=== PATIENT | female | born 1995 | race Native Hawaiian/Other Pacific Islander ===

== ENCOUNTER 2017-01-16 23:00 | Inpatient (IN) | payer MEDICAID ==
[2017-01-17] MEDS ORDERED: ONDANSETRON DISINTEGRATING 4 MG TAB PO PRN (01:04)
[2017-01-17] MEDS ORDERED: ACETAMINOPHEN 325 MG TAB PO PRN (01:04)
[2017-01-17] MEDS ORDERED: ONDANSETRON 4 MG/2 ML VIAL IVP PRN (01:04)
--- NOTE | 2017-01-17 01:43 | PDGENHP ---
History and Physical - Chief Complaint Palpitations - History of Present Illness 21 yo F w/ hx of SVT and 3 days post- s/p transferred from [facility] where she presented with palpitations. Patient noted to be in wide-complex tachycardia, thought to be SVT with rate related LBBB. She received adenosine 12 mg x1, which reportedly terminated the arrhythmia. Additionally she received furosemide 40 mg IV as well as metoprolol (15 mg IV total) and 50 mg PO. At the time of my evaluation patient is comfortable without complaints. Monitor shows sinus tachycardia. Per patient and family, arrhythmia first surfaced when patient was 11 years old. She had an ablation at [facility] at that time. Patient states arrhythmia resurfaces about every 2 years, with her last episode being 2 years ago. She takes metoprolol 25 mo PO BID and no other medications. Currently she denies orthopnea and ESTRADA although she is requiring 4L O2 via NC to maintain sats. History Information - Allergies/Home Medication List Allergies/Adverse Reactions: No Known Allergies Allergy (Unverified 01/17/17 01:04) I have personally reviewed and updated: family history, medical history - Past Medical History SVT - Surgical History Additional surgical history: - Family History Positive for: cancer - Social History Smoking Status: Never smoked Alcohol Use: None Drug Use: None Review of Systems Review of Systems: ROS: 10pt was reviewed & negative except for what was stated in HPI & below Physical Exam Physical Exam: Constitutional: no apparent distress, not in pain Eyes: PERRL, EOMI Ears, Nose, Mouth, Throat: moist mucous membranes, no oral mucosal ulcers Cardiovascular: regular rate and rhythym, no murmur, rub, or gallop, tachycardia Respiratory: no respiratory distress, inspiratory crackles (Bibasilar) Gastrointestinal: normoactive bowel sounds, soft, non-tender abdomen, other ( Lower abdominal scar well approximated and healing well) Skin: warm, normal color Musculoskeletal: full muscle strength, no muscle tenderness Neurologic: AAOx3, CN II-XII Intact Psychiatric: interacting appropriately, not anxious Lab Data & Imaging Review Imaging Review: Reviewed records from [place]: CXR notable for vascular congestion, no zechariah edema. Visualized and Interpreted EKG results: Yes EKG additional interpertation: Reviewed ECG from [place]: Wide complex tachycardia with LBBB underlying morphology Assessment & Plan Assessment: 21 yo F w/ hx of SVT and 3 days post- presents with arrhythmia. Plan: 1. Wide complex tachycardia - Most likely SVT with rate dependent LBBB noting hx and appearance of ECG. Discussed case with Dr. Mari, who requested ICU admission for close monitoring. There is some concern that current episode may have been precipitated by a post- cardiomyopathy. - Monitor on telemetry in ICU - Adenosine if SVT recurs - S/p metoprolol 15 mg IV and 50 mg PO at OSH - Continue home metoprolol 25 mg BID for, would be cautious with additional BB until TTE results are available - TTE to evaluate cardiac function - S/p Lasix 40 mg IV x1 at OSH; will repeat at 9 AM - May need EP study or ablation after stabilization 2. AHRF - Currently requiring 2-4 L/min O2. Most likely 2/2 cardiomyopathy vs. flash pulmonary edema from SVT. Continue to monitor with acute treatment as above. 3. Post- state - incision well approximated and healing well. Diet - Regular Code - Full Ppx - SCDs Dispo - Admit to ICU, observation status for now
[2017-01-17 02:10] LABS: ANION GAP 13 mEq/L (8-16); CALCIUM 8.7 mg/dL (8.5-10.4); CARBON DIOXIDE 19 mEq/l (22-31); CHLORIDE 112 mEq/L (97-110); CREATININE 0.7 mg/dL (0.6-1.0); GLOMERULAR FILTRATION RATE > 60; GLUCOSE 99 mg/dL (70-100); MAGNESIUM 1.9 mg/dL (1.6-2.3); POTASSIUM 4.1 mEq/L (3.5-5.2); SODIUM 144 mEq/L (134-144)
[2017-01-17 02:21] LABS: TROPONIN I 0.718 ng/mL (0.000-0.034)
[2017-01-17 06:07] LABS: % IMMATURE GRANULYOCYTES 0.5 % (0.0-1.1); ABSOLUTE IMMATURE GRANULOCYTES 0.05 10^3/uL (0.00-0.10); ADD DIFF? NO; ADD MORPH? NO; ADD SCAN? YES; ATYPICAL LYMPHOCYTE FLAG 0 (0-99); FRAGMENT RBC FLAG 0 (0-99); HEMOGLOBIN 12.9 g/dL (12.6-16.3); LEFT SHIFT FLG 0 (0-99); LIPEMIA HEMOLYSIS FLAG 90 (0-99); MEAN CELL HEMOGLOBIN 31.3 pg (27.9-34.1); MEAN CELL HEMOGLOBIN CONCENTR. 34.9 g/dL (32.4-36.7); MEAN CELL VOLUME 89.8 fL (81.5-99.8); MEAN PLATELET VOLUME 11.4 fL (8.7-11.7); PLATELET COUNT 229 10^3/uL (150-400); RED BLOOD CELL COUNT 4.12 10^6/uL (4.18-5.33); RED CELL DISTRIBUTION WIDTH 14.1 % (11.5-15.2)
[2017-01-17 06:08] LABS: PLATELET CLUMPS FLAG 110 (0-99)
[2017-01-17 06:27] LABS: SCAN NEGATIVE
[2017-01-17 06:36] LABS: ANION GAP 13 mEq/L (8-16); CALCIUM 8.5 mg/dL (8.5-10.4); CARBON DIOXIDE 19 mEq/l (22-31); CHLORIDE 111 mEq/L (97-110); CREATININE 0.6 mg/dL (0.6-1.0); GLOMERULAR FILTRATION RATE > 60; GLUCOSE 83 mg/dL (70-100); MAGNESIUM 1.9 mg/dL (1.6-2.3); POTASSIUM 4.1 mEq/L (3.5-5.2); SODIUM 143 mEq/L (134-144)
[2017-01-17 06:46] LABS: TROPONIN I 0.585 ng/mL (0.000-0.034)
[2017-01-17] MEDS ORDERED: METOPROLOL TARTRATE 25 MG TAB PO SCH ×2 (09:00→09:31)
[2017-01-17] MEDS ORDERED: FUROSEMIDE 40 MG/4 ML VIAL IVP ONE (09:00)
--- NOTE | 2017-01-17 09:55 | ASMTCMCOM ---
CM Note CM Note Notes: 21 year old female admitted for Tachycardia-SVT, PP cardiomyopathy s/p . Came from [facility]4 L O2. No discharge needs anticipated at this time. Date Signed: 01/17/2017 09:54 AM Electronically Signed By:Breanna Hoffmann LCSW
--- NOTE | 2017-01-17 09:59 | ECHO ---
[email or web address] [address] [address] Main: [phone] Fax: Transthoracic Echocardiogram Name: PRAVIN VICK MR#: [id number] Study Date: 01/17/2017 Study Time: 08:18 AM Date of : 1995 Age: 21 year(s) Height: 160 cm (63 in.) Weight: 90.72 kg (200 lb.) BSA: 1.93 m2 Gender: Female Examination: Echo Indication: Supraventricular Tachycardia, ?CHF, flash pulmonary edema, post Image Quality: Adequate Contrast: Requested by: Hong Yoder BP: 138 mmHg/93 mmHg Heart Rate: Rhythm: Sinus tachycardia Indication: Supraventricular Tachycardia, ?CHF, flash pulmonary edema, post Procedure Staff Physical Security Manager: Miroslava Rios Reading Physician: Osvaldo Mari Requesting Provider: Conclusions: Left ventricle upper limits of normal. Mildly reduced systolic LV function. The ejection fraction is estimated to be 45-50 %. Moderate mitral valve regurgitation is present. Trivial to mild aortic valve regurgitation. Mild tricuspid regurgitation is present. Trivial anterior pericardial effusion. Measurements: Chambers Valvular Assessment AV/MV Valvular Assessment TV/PV Normal Normal Normal Name Value Range Name Value Range Name Value Range Ao Sushila (MM): 2.5 cm (2.2 cm-3.7 AV Vmax: 1.43 m/s (1 m/s-1.7 TR Vmax: 3.26 mm/s ( - ) cm) m/s) TR PGmax: 43 mmHg ( - ) IVSd (2D): 0.9 cm (0.6 cm-1.1 AV maxP mmHg ( - ) syst. PAP: 48 mmHg ( - ) cm) LVOT Vmax: 0.95 m/s (0.7 m/s-1.1 PV Vmax: 1.11 m/s (0.6 m/s-0.9 LVDd (2D): 5.5 cm (3.9 cm-5.3 m/s) m/s) cm) MILES (Vmax): 1.9 cm2 ( - ) PV PGmax: 5 mmHg ( - ) LVDs (2D): 4.5 cm (2.1 cm-4 MV meanP mmHg ( - ) cm) MVA (Vmax): 6.2 m/s ( - ) LVPWd (2D): 0.9 cm ( - ) LVOTd 1.9 cm 1.9 cm mm LVEF (BP): 45 % (>=55 %) EF Range: 45-50 % RVDd(2D): 3.1 cm (1.9 cm-3.8 cmmm) Continued Measurements: Chambers Valvular Assessment AV/MV Valvular Assessment TV/PV Patient: PRAVIN VICK Study Date: 01/17/2017 Page 1 of 2 08:18 AM Name Value Name Value Name Value LADs Lon.4 cm MV Annulus: 3.1 cm CVP (est.): 5 mmHg LA Area: 13.1 cm2 MV VTI: 7.70 cm LA Volume: 42 ml MR ERO: 0.140 cm2 LA Volume Index: 21.8 ml/m2 MR PISA radius: 6 mm MR Reg. Volume: 21 ml MR Reg. Fraction: 36 % Additional Vessels Name Value Ao Ascendin.4 cm Findings: Left Ventricle: Left ventricle upper limits of normal. No LV hypertrophy. Mildly reduced systolic LV function. The ejection fraction is estimated to be 45-50 %. Unable to assess diastolic dysfunction. Right Ventricle: Normal size right ventricle. Normal RV function. Left Atrium: The left atrium is normal in size. Right Atrium: The right atrium is normal in size. Mitral Valve: The mitral valve is normal in appearance. Moderate mitral valve regurgitation is present. The cause of the mitral valve regurgitation is annular dilatation. Aortic Valve: Aortic valve is not well visualized. Trivial to mild aortic valve regurgitation. No aortic valve stenosis is present. Tricuspid Valve: The tricuspid valve appears normal. Mild tricuspid regurgitation is present. The pulmonary artery pressure is moderately increased. Pulmonic Valve: Pulmonary valve not well visualized. There is no pulmonic regurgitation seen. Aorta: Normal size aortic root measuring 2.5 cm. Normal size ascending aorta measuring 2.4 cm. IVC: The IVC is normal sized. Pericardium: Trivial anterior pericardial effusion. (No Signature Object) Patient: PRAVIN VICK Study Date: 01/17/2017 Page 2 of 2 08:18 AM [id number]
[2017-01-17] MEDS: SPIRONOLACTONE 25 MG TAB PO SCH (10:28)
[2017-01-17] MEDS: METOPROLOL TARTRATE 50 MG TAB PO SCH ×2 (10:28→20:19)
[2017-01-17] MEDS: LISINOPRIL 2.5 MG TAB PO SCH (10:28)
--- NOTE | 2017-01-17 10:45 | GCON ---
[f rep st] CONSULTATION CARDIOLOGY CONSULTATION DATE OF CONSULTATION: 01/17/2017 INDICATIONS: SVT, congestive heart failure. HISTORY OF PRESENT ILLNESS: The patient is 21 years old. She has a history of SVT with previous att empts at posterior accessory pathway ablation dating back to 2006 at [facility]. Apparently , the procedure was "partially successful" due to the high risk for complications. Since then, she h as been maintained on low-dose metoprolol, taking 25 mg twice daily. She continues to have episodes of recurrent SVT, generally every several years. The most recent event was about 2 years ago. She has been with her first child recently. Apparently, she had hypertension during her pre gnancy and was transitioned from metoprolol over to labetalol. On Tuesday, her daughter was delivered via an uneventful section. She recovered in the hospital and was discharged home yesterday morning. She was seen in the emergency department last night after she developed the abrupt onset o f palpitations, racing heart rate, chest discomfort, diaphoresis, and dyspnea. In the emergency depa rtment, she was in a wide-complex tachycardia with a heart rate above 240 beats per minute. Her arrh ythmia terminated with adenosine. She was, however, found to be in pulmonary edema. She was treated with additional IV doses of metoprolol and placed on p.o. metoprolol. We were contacted from the [facility] Emergency Department for transfer to [facility]. Here, she has been in sinus tachycardia. She is on 4 L nasal cannula and breathing comfortably. She continues to have short salvos of SVT. Apparently, historically, she did not have preeclampsia. She had an echoc ardiogram this morning. Her left ventricular appears to be a little bit globular and slightly dilate d. Her ejection fraction is about 45%. PAST MEDICAL HISTORY: SVT. CURRENT MEDICATIONS: Metoprolol 25 mg twice daily. ALLERGIES: None. SOCIAL HISTORY: She is and accompanied by her . She uses no drugs or alcohol. FAMILY HISTORY: Noncontributory. REVIEW OF SYSTEMS: A full 10-point review of systems was performed and is otherwise negative. DATABASE: Her electrocardiogram in sinus rhythm demonstrates sinus tachycardia. In her SVT, she dev elops left bundle branch block morphology, wide-complex tachycardia. Her chest x-ray demonstrates pu lmonary edema. White blood cell count is 11, hematocrit 37.0, platelet count 229,000. Basic metabol ic panel is normal. Troponin 0.718 and subsequently 0.585. N-terminal proBNP elevated at 40 to 90. TSH 3.59. IMPRESSION: The patient is 21 years old. She has a history of supraventricular tachycardia, as note d above, with previous attempts at ablation. She has had recurrent palpitations and documented evide nce of recurrent supraventricular tachycardia. She presents now with a wide-complex tachyarrhythmia. Based on review of her ECG, I think this is likely supraventricular tachycardia with aberrancy. Sh teto is noted to be extremely tachycardic in her supraventricular tachycardia. With her supraventricula r tachycardia, she has developed evidence of pulmonary edema and a mild cardiomyopathy. 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 Fortunately, she has been stable today. She is re quiring 4 L of nasal cannula oxygen. She does have moderate mitral regurgitation on her echocardiogr am; however, I think this is probably functional in nature and can be followed. RECOMMENDATIONS: 1. I did up-titrate her metoprolol. She will take 50 mg twice daily. 2. I have started her on a low dose of lisinopril 2.5 mg daily and a low dose of Aldactone. 3. We will carefully follow her electrolytes and renal function. 4. I reviewed her medications. These can be taken in the setting of . I did ask her t o try to curtail her ; however, due to limited human data on these medications. She is okay and comfortable with not at the present time. If she does decide to breastfeed, I would recommend that she delay several hours after taking her medications. 5. I have asked Electrophysiology to see the patient regarding performance of a repeat ablation proc edure. 6. We will follow along with you. /[id number]/MODL
--- NOTE | 2017-01-17 16:01 | HOSPPROG ---
Hospitalist Progress Note Assessment/Plan: sinus tach at risk pe eval SVT management per cardiology Objective: Vital Signs Temp Pulse Resp BP Pulse Ox 37.1 C 100 20 137/96 H 93 01/17/17 13:17 01/17/17 13:51 01/17/17 13:17 01/17/17 13:51 01/17/17 13:51 Laboratory Results 01/17/17 05:52 01/17/17 05:52 01/16/17 01/17/17 01/18/17 05:59 05:59 05:59 Intake Total 200 Output Total 750 1900 Balance -550 -1900
[2017-01-17] MEDS ORDERED: IOPAMIDOL (ISOVUE 370) 100 ML BTL IV ONE (16:12)
--- NOTE | 2017-01-17 17:00 | PDMN ---
Medical Necessity Medical necessity: Change to IP, as of 01/17/17, per MD; los >2mn for ongoing eval/tx of wide complex tachycardia, SVT, CHF, AHRF s/p Csection; per MD
[2017-01-17] MEDS ORDERED: METOPROLOL TARTRATE 50 MG TAB PO SCH (21:00)
[2017-01-18 05:04] LABS: ANION GAP 12 mEq/L (8-16); CALCIUM 8.7 mg/dL (8.5-10.4); CARBON DIOXIDE 21 mEq/l (22-31); CHLORIDE 109 mEq/L (97-110); CREATININE 0.7 mg/dL (0.6-1.0); GLOMERULAR FILTRATION RATE > 60; GLUCOSE 78 mg/dL (70-100); POTASSIUM 4.1 mEq/L (3.5-5.2); SODIUM 142 mEq/L (134-144)
[2017-01-18 08:05] VITALS: BP 128/95; PULSE 88; RESP 14; TEMP 99.1; O2SAT 96
[2017-01-18] MEDS: METOPROLOL TARTRATE 50 MG TAB PO SCH (08:56)
[2017-01-18] MEDS: SPIRONOLACTONE 25 MG TAB PO SCH (08:56)
[2017-01-18] MEDS: LISINOPRIL 2.5 MG TAB PO SCH (08:56)
[2017-01-18] MEDS ORDERED: SPIRONOLACTONE 25 MG TAB PO SCH (09:00)
[2017-01-18] MEDS ORDERED: LISINOPRIL 2.5 MG TAB PO SCH (09:00)
--- NOTE | 2017-01-18 10:05 | HOSPPROG ---
Hospitalist Progress Note Assessment/Plan: sinus tach at risk pe eval SVT management per cardiology home today > 30 minutes Subjective: case discussed w dr rubio. feels better. no PE. less tachy Objective: Vital Signs Temp Pulse Resp BP Pulse Ox 37.3 C 88 14 128/95 H 96 01/18/17 07:59 01/18/17 07:59 01/18/17 07:59 01/18/17 07:59 01/18/17 07:59 Laboratory Results 01/17/17 05:52 01/18/17 04:28 01/17/17 01/18/17 01/19/17 05:59 05:59 05:59 Intake Total 200 930 Output Total 750 2800 Balance -550 -1870 - Physical Exam Constitutional: no apparent distress, appears nourished Eyes: PERRL, anicteric sclera Ears, Nose, Mouth, Throat: moist mucous membranes, hearing normal Cardiovascular: regular rate and rhythym, no murmur, rub, or gallop, No tachycardia Respiratory: no respiratory distress, no rales or rhonchi Gastrointestinal: normoactive bowel sounds, soft, non-tender abdomen Genitourinary: no bladder fullness, No doe in urethra Skin: warm, normal color Musculoskeletal: full muscle strength, no muscle tenderness Neurologic: AAOx3, sensation intact bilaterally Psychiatric: interacting appropriately
--- NOTE | 2017-01-18 11:27 | ECHO ---
[email or web address] [address] [address] Main: [phone] Fax: Transthoracic Echocardiogram Name: PRAVIN VICK MR#: [id number] Study Date: 01/18/2017 Study Time: 09:42 AM Date of : 1995 Age: 21 year(s) Height: 160 cm (63 in.) Weight: 104.78 kg (231 lb.) BSA: 2.06 m2 Gender: Female Examination: Limited Echo Indication: Reassess EF and MR Image Quality: Excellent Contrast: Requested by: Osvaldo Mari BP: 128 mmHg/95 mmHg Heart Rate: Rhythm: Indication: Reassess EF and MR Procedure Staff Mechanical Car Checker: Saadia Mayorga Physician: Osvaldo Mari Requesting Provider: Conclusions: Limited transthoracic echo to reassess LV function in this patient with newly diagnosed congestive heart failure thought possibly to reflect peripartum cardiomyopathy. The left ventricle measures at the upper limits of normal at end diastole. The ejection fraction is mildly reduced estimated at 45-50%. There is global left ventricular hypokinesis. Once again, moderate mitral insufficiency is noted. Essentially, this is unchanged when compared to a prior study. Measurements: Chambers Valvular Assessment AV/MV Valvular Assessment TV/PV Normal Normal Normal Name Value Range Name Value Range Name Value Range LVDd (2D): 5.6 cm (3.9 cm-5.3 cm) LVEF (BP): 50 % (>=55 %) EF Range: 45-50 % Continued Measurements: Findings: Left Ventricle: Left ventricle upper limits of normal. The ejection fraction is estimated to be 45-50 %. Mitral Valve: Moderate mitral valve regurgitation is present. Exam Comments: Limited 2-D echo.. (No Signature Object) Patient: PRAVIN VICK Study Date: 01/18/2017 Page 1 of 2 09:42 AM Patient: PRAVIN VICK Study Date: 01/18/2017 Page 2 of 2 09:42 AM [id number]
--- NOTE | 2017-01-18 11:32 | SOAPPROG ---
SOAP Progress Note Assessment/Plan: Assessment: She has a history of supraventricular tachycardia. 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 When she goes into this arrhythmias heart rates are as fast as 250 beats per. She is now 3 days . She recently had at least 30 minutes of this arrhythmia and presented with congestive heart failure. We have not seen any ventricular arrhythmias. Her echocardiogram demonstrates that her ejection fraction is on the low side at 45- 50% with borderline left ventricular dilatation and moderate mitral regurgitation. It is not clear to me presently whether not her current presentation represents, in addition to her SVT, some forme fruste of a peripartum cardiomyopathy. She did have -induced hypertension which may place her at increased risk for peripartum cardiomyopathy. Fortunately, she is doing well presently on her current medications with no indications of recurrent SVT, worsening heart failure or malignant ventricular arrhythmias. Plan: 1. At the present time I think that she can be discharged home. 2. I would like her to follow up with me in the clinic in the next 1-2 weeks. 3. As an outpatient we will carefully follow her ejection fraction and degree of mitral regurgitation. I may consider a VIOLETTE to further assess her mitral valve. 4. I would like her to continue her current medications. 01/18/17 11:29 Subjective: She has done well overnight. She has not had any recurrent arrhythmias. She remains in sinus tachycardia. She no longer has an oxygen requirement. She denies chest discomfort, chest pain and pressure. She has no lower extremity edema. We repeated a limited transthoracic echocardiogram today. This demonstrates that her ejection fraction is stable at 45 to 50% with borderline left ventricular dilatation associated with moderate mitral regurgitation. Objective: Vital Signs Temp Pulse Resp BP Pulse Ox 37.3 C 88 14 128/95 H 96 01/18/17 07:59 01/18/17 07:59 01/18/17 07:59 01/18/17 07:59 01/18/17 07:59 Laboratory Results 01/17/17 05:52 01/18/17 04:28 01/17/17 01/18/17 01/19/17 05:59 05:59 05:59 Intake Total 200 930 Output Total 750 2800 Balance -550 -8560 - Time Spent With Patient Time Spent With Patient: 45 minutes. Physical Exam - Physical Exam General Appearance: WD/WN, no apparent distress Neck: non-tender Respiratory: lungs clear Cardiac/Chest: regular rate, rhythm, systolic murmur (1/6 holosystolic murmur left sternal border) Peripheral Pulses: 2+: carotid (R), carotid (L) Abdomen: normal bowel sounds, non-tender Pelvic Exam: deferred Rectal: deferred Neuro/Psych: alert, oriented x 3 ICD10 Worksheet Patient Problems: Problems Problem Status Onset CHF (congestive heart failure) Acute Mitral regurgitation Acute SVT (supraventricular tachycardia) Acute - ICD10 Problem Qualifiers (1) SVT (supraventricular tachycardia) (2) CHF (congestive heart failure) (3) Mitral regurgitation
--- NOTE | 2017-01-18 12:45 | GDS ---
[f rep st] DISCHARGE SUMMARY DISCHARGE DIAGNOSES: 1. History of supraventricular tachycardia with recurrence. 2. Status post section, 3 days prior to admission. 3. Mild systolic heart failure. 4. Sinus tachycardia. Please see admission history and physical by Dr. Hong Oro. The patient presented with pa lpitations and wide-complex tachycardia, and responded. She was actually seen at [facility] a nd transferred here. She had an SVT. At that point in time, she received adenosine which terminated the arrhythmia. She was given Lasix and metoprolol, both oral and IV. Please see Dr. Oro's admission history and physical for further evaluation. She had a CT PE negative for pulmonary embol ism. She had a repeat echocardiogram once her arrhythmia was stabilized, which showed left ventricul ar ejection fraction is mildly reduced at 45% to 50% with global LVH, moderate mitral insufficiency. Her metoprolol was increased from 25 mg b.i.d. to 50 b.i.d. Lisinopril was added. Spironolactone w as added. These medication changes were made by Dr. Suman Mari, her pier hand. Additionally, he c hecked with the pharmacy to verify the safety in breast-feeding. The patient is discharged home with these new prescriptions and outpatient followup with Dr. Mari. /[id number]/MODL
--- NOTE | 2017-01-18 14:00 | ASDISCHSUM ---
Discharge Information Plan Status:Home with No Needs Medically Cleared to Leave:01/18/2017 Discharge Date:01/18/2017 12:49 PM CM D/C Disposition:Home, Routine, Self-Care ADT D/C Disposition:Home, Routine, Self-Care Projected Discharge Date:01/18/2017 12:49 PM Transportation at D/C:Family Discharge Delay Reason: Follow-Up Date:01/18/2017 12:49 PM Discharge Slot: Final Diagnosis:SVT, PP cardiomyopathy s/p Placement Information Patient Contact Information Contact Name:MC Relationship: Address: Home Phone: Work Phone: City: Alternate Phone: State/[employer] Code: Email: Financial Information Financial Class: Primary Plan Desc:[facility] Primary Plan Number:[id number] Secondary Plan Desc: Secondary Plan Number: Assessment Information [facility] CM Progress Note CM Note CM Note Notes: 21 year old female admitted for Tachycardia-SVT, PP cardiomyopathy s/p . Came from [facility]4 L O2. No discharge needs anticipated at this time. Date Signed: 01/17/2017 09:54 AM Electronically Signed By:Breanna Hoffmann LCSW Intervention Information
--- NOTE | 2017-01-18 16:53 | PDCARCONS ---
Cardiology Consult Reason for Consult: Wide complex tacycardia. Prior ablation procedure for concealed AP at [facility]. Consult done 01/07/2017, late dictation after review of records from [facility] Chief Complaint: Palpitations with heart rates up to 240 beats per min Requesting Physician: Dr. Osvaldo Mari History of Present Illness: 21-year-old female, known to me from her initial clinic visit with me 10 years ago. At that time she had presented with supraventricular tachycardia and had referred her to [facility] for an ablation procedure that was performed by Dr. Harry and Dr. Lo. Ablation procedure was unsuccessful at that time and she has been managed with metoprolol. She is day 2, she returned to the emergency department at [facility] yesterday with heart rates of 245 beats per minute. The wide complex tachycardia, left bundle branch block aberrancy was noted, adenosine was administered which converted her to sinus rhythm. She had a 2nd episode of supraventricular tachycardia with aberrancy while in the emergency department, received IV adenosine which converted again to sinus rhythm. She had pulmonary edema on presentation and required BiPAP. I visited with her in the ICU, her parents and her are present at the time of this conversation. Her RN was also present in the room. She states that she has frequent episodes of palpitations since her ablation, at least once a month however episodes that required emergency department visit occur every 1-2 years. She has not had syncope. She denies exertional chest pain. History Information - Allergies/Home Medication List Allergies/Adverse Reactions: No Known Allergies Allergy (Unverified 01/17/17 01:04) Home Medications: Acetaminophen [Tylenol 325mg (*)] 325 mg PO DAILY PRN 01/17/17 [Last Taken Unknown] I have personally reviewed and updated: family history, medical history, social history, surgical history Past Medical History: - Social History Smoking Status: Never smoked Alcohol Use: None Drug Use: None Physical Exam Physical Exam: Temp Pulse Resp BP Pulse Ox 37.3 C 88 14 128/95 H 96 01/18/17 07:59 01/18/17 07:59 01/18/17 07:59 01/18/17 07:59 01/18/17 07:59 O2 (L/minute) 2 Constitutional: no apparent distress, appears nourished, not in pain Eyes: PERRL, EOMI Ears, Nose, Mouth, Throat: moist mucous membranes, hearing normal Cardiovascular: regular rate and rhythym, no murmur, rub, or gallop Respiratory: no respiratory distress Gastrointestinal: normoactive bowel sounds Genitourinary: no bladder fullness Skin: warm Neurologic: AAOx3 Psychiatric: interacting appropriately, not anxious, not encephalopathic, thought process linear Lab and Imaging 01/17/17 05:52 01/18/17 04:28 WBC 11.03 10^3/uL (3.80-9.50) H 01/17/17 05:52 RBC 4.12 10^6/uL (4.18-5.33) L 01/17/17 05:52 Hgb 12.9 g/dL (12.6-16.3) 01/17/17 05:52 Hct 37.0 % (38.0-47.0) L 01/17/17 05:52 MCV 89.8 fL (81.5-99.8) 01/17/17 05:52 MCH 31.3 pg (27.9-34.1) 01/17/17 05:52 MCHC 34.9 g/dL (32.4-36.7) 01/17/17 05:52 RDW 14.1 % (11.5-15.2) 01/17/17 05:52 Plt Count 229 10^3/uL (150-400) 01/17/17 05:52 MPV 11.4 fL (8.7-11.7) 01/17/17 05:52 Neut % (Auto) 78.5 % (39.3-74.2) H 01/17/17 05:52 Lymph % (Auto) 16.6 % (15.0-45.0) 01/17/17 05:52 [place] % (Auto) 3.6 % (4.5-13.0) L 01/17/17 05:52 Eos % (Auto) 0.5 % (0.6-7.6) L 01/17/17 05:52 Baso % (Auto) 0.3 % (0.3-1.7) 01/17/17 05:52 Nucleat RBC Rel Count 0.0 % (0.0-0.2) 01/17/17 05:52 Absolute Neuts (auto) 8.67 10^3/uL (1.70-6.50) H 01/17/17 05:52 Absolute Lymphs (auto) 1.83 10^3/uL (1.00-3.00) 01/17/17 05:52 Absolute Monos (auto) 0.40 10^3/uL (0.30-0.80) 01/17/17 05:52 Absolute Eos (auto) 0.05 10^3/uL (0.03-0.40) 01/17/17 05:52 Absolute Basos (auto) 0.03 10^3/uL (0.02-0.10) 01/17/17 05:52 Absolute Nucleated RBC 0.00 10^3/uL (0-0.01) 01/17/17 05:52 Immature Gran % 0.5 % (0.0-1.1) 01/17/17 05:52 Immature Gran # 0.05 10^3/uL (0.00-0.10) 01/17/17 05:52 Sodium 142 mEq/L (134-144) 01/18/17 04:28 Potassium 4.1 mEq/L (3.5-5.2) 01/18/17 04:28 Chloride 109 mEq/L (97-110) 01/18/17 04:28 Carbon Dioxide 21 mEq/l (22-31) L 01/18/17 04:28 Anion Gap 12 mEq/L (8-16) 01/18/17 04:28 BUN 16 mg/dL (7-23) 01/18/17 04:28 Creatinine 0.7 mg/dL (0.6-1.0) 01/18/17 04:28 Estimated GFR > 60 01/18/17 04:28 Glucose 78 mg/dL (70-100) 01/18/17 04:28 Calcium 8.7 mg/dL (8.5-10.4) 01/18/17 04:28 Magnesium 1.9 mg/dL (1.6-2.3) 01/17/17 05:52 Troponin I 0.585 ng/mL (0.000-0.034) H 01/17/17 05:52 NT-Pro-B Natriuret Pep 4290 pg/mL (0-125) H 01/17/17 02:00 TSH 3.590 uIU/mL (0.465-4.680) 01/17/17 05:52 A/P Assessment: 1. -induced hypertension 2. Supraventricular tachycardia with left bundle-branch block aberrancy 3. Concealed posterior/posteroseptal accessory pathway, attempted ablation procedure at [facility] in 2006. Plan: I have reviewed her ablation report from 11/22/2006, concealed posterior/ posteroseptal accessory pathway was present. Transseptal puncture was done and ablation was performed with radiofrequency in the posterior inferior region of the mitral valve. Cryo ablation catheter was placed in the coronary sinus and middle cardiac vein and ablations were performed there as well. According to Dr. Harry's note, there was no blocking conduction over the accessory pathway. 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 She is now presenting with -induced hypertension and sustained supraventricular tachycardia requiring emergency department visit 2 days . Her echocardiogram shows LVEF of 45-50%, she did have pulmonary edema on presentation to the [facility]. Currently she is on appropriate medical therapy with beta-blockers and Quentin inhibitors. She has recurrent SVT with heart rates in excess of 240 beats per minute despite medical therapy. Repeat ablation procedure is appropriate. Risks of the procedure including , mi, CVA, cardiac tamponade, DVT, pulmonary embolism, complete heart block requiring permanent pacemaker placement , infection, vascular access complications etc were discussed with her and her family at length. Alternative to this including escalation of medical therapy was discussed. She wants to proceed with ablation procedure. Given high risk of DVT/pulmonary embolism in the peripartum period, I would like to wait for 6 weeks prior to scheduling her for an ablation, ablation is scheduled for February. Metoprolol will be stopped 3 days prior to the procedure. These findings were discussed with referring hand tire trimmer Dr. Osvaldo Mari.
== END 2017-01-18 12:49 | disposition home or self-care (01) | DRG 776 ==
LOC: F2N 01-17 01:01 → F2W 01-17 12:55 → OBSVTOIN 01-17 16:21
PROVIDERS: ADMIT Student in an Organized Health Care Education/Training Program; ATTEND Student in an Organized Health Care Education/Training Program
DX: O99.43 Diseases of the circulatory system complicating the puerperium (principal); I47.1 Supraventricular tachycardia; I50.20 Unspecified systolic (congestive) heart failure; O13.5 Gestational [pregnancy-induced] hypertension without significant proteinuria, complicating the puerperium
CPT/HCPCS: J1940; Q9967

== ENCOUNTER 2017-03-09 07:01 | Observation (INO) | payer MEDICAID ==
[2017-03-09] MEDS ORDERED: NS 1,000 ML IV ONE (07:04)
--- NOTE | 2017-03-09 07:19 | CPEKG ---
Heart Rate: 93 RR Interval: 645 P-R Interval: 144 QRSD Interval: 80 QT Interval: 388 QTC Interval: 483 P [place]: 47 QRS [place]: 14 T Wave [place]: 11 EKG Severity - BORDERLINE ECG - EKG Impression: SINUS RHYTHM EKG Impression: BORDERLINE T ABNORMALITIES, ANTERIOR LEADS EKG Impression: BORDERLINE PROLONGED QT INTERVAL Electronically Signed By: Yoselin Bishop 09-Mar-2017 09:41:53
[2017-03-09 07:30] LABS: % IMMATURE GRANULYOCYTES 0.4 % (0.0-1.1); ABSOLUTE IMMATURE GRANULOCYTES 0.03 10^3/uL (0.00-0.10); ADD DIFF? NO; ADD MORPH? NO; ADD SCAN? NO; ATYPICAL LYMPHOCYTE FLAG 10 (0-99); FRAGMENT RBC FLAG 0 (0-99); HEMATOCRIT 42.3 % (38.0-47.0); HEMOGLOBIN 14.4 g/dL (12.6-16.3); LEFT SHIFT FLG 0 (0-99); LIPEMIA HEMOLYSIS FLAG 90 (0-99); MEAN CELL HEMOGLOBIN 29.9 pg (27.9-34.1); MEAN CELL VOLUME 87.9 fL (81.5-99.8); MEAN PLATELET VOLUME 10.3 fL (8.7-11.7); PLATELET CLUMPS FLAG 20 (0-99); PLATELET COUNT 260 10^3/uL (150-400); RED BLOOD CELL COUNT 4.81 10^6/uL (4.18-5.33); RED CELL DISTRIBUTION WIDTH 12.7 % (11.5-15.2)
[2017-03-09 07:39] LABS: APTT 27.2 SEC (23.0-38.0); INR 0.97 (0.83-1.16); PROTIME(PATIENT) 13.1 SEC (12.0-15.0)
[2017-03-09 07:41] LABS: ANION GAP 15 mEq/L (8-16); CALCIUM 9.5 mg/dL (8.5-10.4); CARBON DIOXIDE 21 mEq/l (22-31); CHLORIDE 109 mEq/L (97-110); CREATININE 0.8 mg/dL (0.6-1.0); GLOMERULAR FILTRATION RATE > 60; GLUCOSE 92 mg/dL (70-100); MAGNESIUM 1.7 mg/dL (1.6-2.3); SODIUM 145 mEq/L (134-144)
--- NOTE | 2017-03-09 08:12 | PDGENHP ---
History & Physical Chief Complaint: svt History of Present Illness: symptomatic svt Relevant Physical Exam: [id number]. cta. aox3 Cardiorespiratory Assessment: symptomatic svt. for ablation
[2017-03-09] MEDS ORDERED: LIDOCAINE 1% 300 MG/30 ML SDV ONE (08:21)
[2017-03-09] MEDS ORDERED: MIDAZOLAM 2 MG/2 ML VIAL IVP ONE (08:21)
[2017-03-09] MEDS ORDERED: HEPARIN 10,000 UNIT/10 ML MDV ONE ×2 (08:22→08:23)
[2017-03-09] MEDS ORDERED: BUPIVACAINE 0.5% 30 ML SDV ONE (08:22)
[2017-03-09] MEDS ORDERED: HEPARIN/DEXTROSE 25,000 UNIT/500 ML BAG ONE (08:22)
--- NOTE | 2017-03-09 08:23 | PDANEPAE ---
ANE History of Present Illness SVT ablation ANE Past Medical History Past Medical History: PIH and mild CHF - Cardiovascular History Hx Hypertension: Yes Hx Arrhythmias: Yes Hx CHF / Valvular Disease: Yes - Pulmonary History Hx Sleep Apnea: No - Endocrine History Hx Diabetes: No - Chronic Pain History Chronic Pain: No ANE Review of Systems Review of Systems: - Exercise capacity Exercise capacity: >=4 METS ANE Patient History - Allergies Allergies/Adverse Reactions: No Known Allergies Allergy (Unverified 01/17/17 01:04) - Home Medications Home medications: home medication list seen and reviewed Home Medications: Acetaminophen [Tylenol 325mg (*)] 325 mg PO DAILY PRN 01/17/17 [Last Taken Unknown] - NPO status NPO Status: no food or drink >8 hours - Anes Hx Anes Hx: no prior problems - Smoking Hx Smoking Status: Never smoked - Alcohol Use Alcohol Use: None - Family Anes Hx Family Anes Hx: none ANE Labs/Vital Signs - Labs Result Diagrams: 03/09/17 07:15 03/09/17 07:15 - Vital Signs Height: 160.02 cm Weight: 90.718 kg ANE Physical Exam - Airway Mallampati Score: Class 2 Mouth exam: normal dental/mouth exam - Pulmonary Pulmonary: no respiratory distress - Cardiovascular Cardiovascular: regular rate and rhythym - ASA Status ASA Status: II ANE Anesthesia Plan Anesthesia Plan: general endotracheal anesthesia (R/B/A explained and patient agrees to proceed)
[2017-03-09] MEDS ORDERED: fentaNYL 100 MCG/2 ML INJ ONE (08:51)
[2017-03-09] MEDS ORDERED: PROPOFOL/EMULSION 500 MG/50 ML BOTTLE IV ONE ×5 (08:51→15:30)
[2017-03-09] MEDS ORDERED: DEXAMETHASONE 4 MG/ML VIAL ONE (09:02)
[2017-03-09] MEDS ORDERED: IOPAMIDOL (ISOVUE-300) 100 ML BTL ONE (09:03)
[2017-03-09] MEDS ORDERED: ROCURONIUM 50 MG/5 ML VIAL ONE (10:26)
[2017-03-09] MEDS ORDERED: PHENYLEPHRINE HCL 100 MCG/ML SYR ONE ×5 (10:28→13:49)
[2017-03-09] MEDS ORDERED: CALCIUM CHLORIDE 1 GM/10 ML INJ ONE (14:45)
[2017-03-09] MEDS ORDERED: ISOPROTERENOL HCL/D5W 0.2 MG/50 ML BAG IV ONE (14:51)
[2017-03-09] MEDS ORDERED: PROTAMINE SULFATE 50 MG/5 ML VIAL IVP ONE (15:53)
[2017-03-09] MEDS ORDERED: ATROPINE SULFATE 1 MG/10 ML SYR ONE (16:25)
[2017-03-09] MEDS ORDERED: ACETAMINOPHEN 325 MG TAB PO PRN (16:44)
[2017-03-09] MEDS ORDERED: OXYCODONE/APAP 5/325 TAB PO PRN (16:44)
[2017-03-09] MEDS ORDERED: ONDANSETRON 4 MG/2 ML VIAL IVP PRN (16:44)
--- NOTE | 2017-03-09 17:18 | CPEKG ---
Heart Rate: 86 RR Interval: 698 P-R Interval: 136 QRSD Interval: 76 QT Interval: 360 QTC Interval: 431 P [place]: 52 QRS [place]: 28 T Wave [place]: -32 EKG Severity - BORDERLINE ECG - EKG Impression: SINUS RHYTHM EKG Impression: BORDERLINE T ABNORMALITIES, DIFFUSE LEADS Electronically Signed By: Armin Marquez 10-Mar-2017 01:50:32
[2017-03-09 17:41] LABS: ANION GAP 15 mEq/L (8-16); CALCIUM 9.3 mg/dL (8.5-10.4); CARBON DIOXIDE 17 mEq/l (22-31); CHLORIDE 111 mEq/L (97-110); CREATININE 0.7 mg/dL (0.6-1.0); GLOMERULAR FILTRATION RATE > 60; GLUCOSE 144 mg/dL (70-100); MAGNESIUM 1.4 mg/dL (1.6-2.3); POTASSIUM 4.2 mEq/L (3.5-5.2); SODIUM 143 mEq/L (134-144)
--- NOTE | 2017-03-09 17:49 | EPPROC ---
Electrophysiology Procedure Note: ELECTROPHYSIOLOGIC STUDY AND CATHETER MEDIATED ABLATION OF 3 separate POSTEROSEPTAL ACCESSORY PATHWAYS Procedures performed: 47323-29 EP evaluation with RA/RV/LA pace/record, with arrhythmia induction 58843-32 EP evaluation with RA/RV pace record, insert/reposition catheter, with arrhythmia induction 93172 Intracardiac catheter ablation, SVT arrhythmogenic focus 97460 3D mapping Fluoroscopy 43950 Intracardiac echocardiogram 13705-91 Transseptal puncture INDICATION: Recurrent SVT Prior failed ablation at [place], [place] PROCEDURE: Catheters and anesthesia: The patient arrived in the Electrophysiology Laboratory in the fasting state. The right clavicular region, right groin, and left groin area were prepped and draped in the usual sterile manner. Anesthesiologist Dr. Candis Forrest administered general anesthesia. Appropriate non-invasive blood pressure, pulse oximetry and end-tidal CO2 monitoring was established. All catheters were placed percutaneously using the modified Seldinger technique , and advanced into position under fluoroscopic guidance. One #6 Polish hexapolar non-deflectable electrode catheter was inserted into the right atrial appendage via the left femoral vein (2mm spacing; except the proximal ring which was 25cm from the tip used for unipolar recordings). One #7 Polish deflectable octapolar electrode catheter was advanced to the His-bundle position via the left femoral vein (2mm spacing). One #7 Polish deflectable quadrapolar catheter was advanced to the anteroseptal right ventricle via the left femoral vein. One #7 Polish deflectable catheter with 10 pairs of electrodes was placed via the right femoral vein into the coronary sinus. A Halo catheter was placed along the tricuspid annulus initially to r/o right lateral AP and then removed. At beginning of procedure, using Agilis sheath and PWP catheter, CS angiography was done. There were no CS branch anomalies. Programmed stimulation of the right atrium, right ventricle and coronary sinus ( left atrium) was performed. Parahisian pacing demonstrated two patterns of retrograde atrial activation during His bundle capture and loss of His bundle capture c.w. retrograde accessory pathway conduction. 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 Ventricular extrastimuli delivered during tachycardia during His bundle refractoriness advanced the next atrial activation with the same retrograde atrial activation sequence proving the tachycardia to be orthodromic AV reentrant tachycardia. Heparin was given to keep ACT >250 ms during initial part of procedure. Mapping was difficult due to retrograde slow AV maribeth pathway also being present and conducting 1:1 up to 400 ms. Mapping was performed during ventricular pacing. Ablation was performed for 2 separate AV accessory pathways: AP #1 coronary sinus ostium near ostium of middle cardiac vein ablation with 6 mm cryo catheter. AP # 2 proximal coronary sinus floor just proximal to ostium of posterolateral branch of coronary sinus ablation with 6mm cryo catheter. Block with 1st cryo within 11 seconds. AP#3 was identified lateral to AP#2 site. In preparation for ablation of the left posteroseptal accessory pathway a transeptal puncture was performed under fluoroscopic and hemodynamic guidance. Intracardiac echocardiography was used during the procedure. Mean left atrial pressure was 6 mm Hg mmHg. A SL1 sheath was inserted into the left atrium. The patient was administered IV heparin bolus and IV heparin continuous infusion prior to the transseptal puncture and the activated clotting time was maintained ~ 300 seconds during the remainder of the procedure. RF was delivered for AP#3 at posteroseptal mitral annulus. AP conduction terminated within 7 seconds of initiation of ablation. Further RF applications were delivered anterior and posterior to this site. Programmed stimulation from the RA, CS, right and leftventricle during the baseline state post ablation and during infusion of isoproterenol 2 -8 mcg/min confirmed that there was no conduction over the accessory pathways and no orthodromic AVRT could be induced. The catheters were removed. Long sheath was exchanged for short sheath. Protamine was administered. The patient was transferred to the cardiovascular holding area in stable condition. Vascular access sheaths were removed in the holding area. There were no apparent complications. Results: A. Spontaneous Intervals: Pre ablation SCL 830 ms AH 50 ms HV 40 ms Post ablation SCL 760 ms AH 45 ms HV 40 ms B. Antegrade AV maribeth function (decremental pacing) Pre ablation FPERP 300 ms SPERP 270 ms WBB CL 260 ms Post ablation FPERP 300 ms SPERP 280 ms WBB CL 260 ms C. Retrograde AV maribeth function (decremental pacing) Pre ablation see AP conduction Post ablation FPERP 400 ms SPERP 390 ms WBB CL 380 ms D. Accessory pathway function 1. 3 separate posteroseptal accessory pathways. 2. The AV accessory pathways conducted in the retrograde directions. During ventricular pacing 1:1 conduction over the accessory pathway was maintained to a cycle length of 300 ms, block over the AP occurred at 290 ms. E. Arrhythmias: 1. Orthodromic AVRT Tachycardia cycle length: 260 ms AH interval 50 ms HV interval 40ms VA interval (His) 170 ms Shortest VA interval 130 ms CONCLUSIONS: 1. 3 separate AV accessory pathways at ostium of middle cardiac vein, proximal CS and posteroseptal mitral annulus. 2. 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 3. Successful ablation of the accessory pathways with elimination of AV reentrant tachycardia. (RF and cryo) 4. No apparent complications. Patient Problems: Problems Problem Status Onset SVT (supraventricular tachycardia) Acute CHF (congestive heart failure) Acute Mitral regurgitation Acute
--- NOTE | 2017-03-09 17:57 | ECHO ---
[email or web address] [address] [address] Main: [phone] Fax: Transthoracic Echocardiogram Name: PRAVIN VICK MR#: [id number] Study Date: 03/09/2017 Study Time: 07:32 AM Date of : 1995 Age: 22 year(s) Height: 160 cm (63 in.) Weight: 90.72 kg (200 lb.) BSA: 1.93 m2 Gender: Female Examination: Echo Indication: Supraventricular Tachycardia Image Quality: Contrast: Requested by: Armin Marquez BP: 121 mmHg/73 mmHg Heart Rate: Rhythm: Indication: Supraventricular Tachycardia Procedure Staff [place] Administrator: Saadia Guadarrama Reading Physician: Chema Conner Requesting Provider: Conclusions: Mildly dilated left ventricle. Normal global systolic LV function. The ejection fraction is estimated to be 50-55 %. No regional wall motion abnormality. Normal RV function. The left atrium is normal in size. The right atrium is normal in size. The pulmonary artery pressure is normal. No pericardial effusion. Measurements: Chambers Valvular Assessment AV/MV Valvular Assessment TV/PV Normal Normal Normal Name Value Range Name Value Range Name Value Range Ao Sushila (MM): 2.7 cm (2.2 cm-3.7 AV meanP mmHg ( - ) TR Vmax: 2.49 mm/s ( - ) cm) MV E Vmax: 1.02 m/s ( - ) TR PGmax: 25 mmHg ( - ) IVSd (2D): 0.8 cm (0.6 cm-1.1 MV A Vmax: 0.50 m/s ( - ) syst. PAP: 30 mmHg ( - ) cm) MV E/A: 2.04 ( - ) LVDd (2D): 5.4 cm (3.9 cm-5.3 cm) LVDs (2D): 4.7 cm (2.1 cm-4 cm) LVPWd (2D): 0.7 cm ( - ) LVOTd 1.9 cm 1.9 cm mm LVEF (MOD4): 56 % (>=55 %) EF Range: 50-55 % Continued Measurements: Chambers Valvular Assessment AV/MV Valvular Assessment TV/PV Patient: PRAVIN VICK Study Date: 03/09/2017 Page 1 of 2 07:32 AM Name Value Name Value Name Value LADs: 3.7 cm MV E' Septal: 0.07 m/s CVP (est.): 5 mmHg LADs Lon.3 cm MV E/E' Septal: 15.40 LA Area: 17.2 cm2 MV E/E' Lateral: 11.80 MR Vena Contracta: 0.2 cm Findings: Left Ventricle: Mildly dilated left ventricle. Normal global systolic LV function. The ejection fraction is estimated to be 50-55 %. No regional wall motion abnormality. Right Ventricle: Normal size right ventricle. Normal RV function. Left Atrium: The left atrium is normal in size. Right Atrium: The right atrium is normal in size. Mitral Valve: The mitral valve is normal in appearance and function. Mild mitral valve regurgitation is present. Aortic Valve: The aortic valve is normal in appearance and function. Tricuspid Valve: The tricuspid valve is normal in appearance and function. Trivial to mild tricuspid valve regurgitation. The pulmonary artery pressure is normal. Pulmonic Valve: The pulmonic valve is normal in appearance and function. Trivial pulmonic valve regurgitation. Aorta: The aorta is normal. Pericardium: No pericardial effusion. Exam Comments: Compared to the echo of 01/18/17, the MR has improved.. (No Signature Object) Patient: PRAVIN VICK Study Date: 03/09/2017 Page 2 of 2 07:32 AM [id number]
[2017-03-09] MEDS ORDERED: MAGNESIUM SULF 2 GM/WATER 50 ML IV ONE (19:00)
--- NOTE | 2017-03-10 05:56 | POSTANESTH ---
Post Anesthetic Evaluation Cardiovascular Status: Normal, Stable Respiratory Status: Normal, Stable Level of Consciousness/Mental Status: Can Participate in Eval Pain Control: Adequate, Prn Tx Ordered Nausea/Vomiting Control: Adequate, Prn Tx Ordered Complications Possibly Related to Anesthesia: None Noted (seen 03/09/17 in cvc)
[2017-03-10 06:09] LABS: % IMMATURE GRANULYOCYTES 0.2 % (0.0-1.1); ABSOLUTE IMMATURE GRANULOCYTES 0.02 10^3/uL (0.00-0.10); ADD DIFF? NO; ADD MORPH? NO; ADD SCAN? NO; ATYPICAL LYMPHOCYTE FLAG 0 (0-99); FRAGMENT RBC FLAG 0 (0-99); HEMATOCRIT 35.7 % (38.0-47.0); HEMOGLOBIN 11.9 g/dL (12.6-16.3); LEFT SHIFT FLG 0 (0-99); LIPEMIA HEMOLYSIS FLAG 80 (0-99); MEAN CELL HEMOGLOBIN 29.9 pg (27.9-34.1); MEAN CELL HEMOGLOBIN CONCENTR. 33.3 g/dL (32.4-36.7); MEAN CELL VOLUME 89.7 fL (81.5-99.8); MEAN PLATELET VOLUME 10.9 fL (8.7-11.7); PLATELET CLUMPS FLAG 0 (0-99); PLATELET COUNT 217 10^3/uL (150-400); RED BLOOD CELL COUNT 3.98 10^6/uL (4.18-5.33); RED CELL DISTRIBUTION WIDTH 12.9 % (11.5-15.2)
[2017-03-10 06:18] LABS: ANION GAP 12 mEq/L (8-16); CALCIUM 8.4 mg/dL (8.5-10.4); CARBON DIOXIDE 21 mEq/l (22-31); CHLORIDE 110 mEq/L (97-110); CREATININE 0.8 mg/dL (0.6-1.0); GLOMERULAR FILTRATION RATE > 60; GLUCOSE 89 mg/dL (70-100); POTASSIUM 3.8 mEq/L (3.5-5.2); SODIUM 143 mEq/L (134-144)
[2017-03-10 06:29] LABS: CK-MB INTERPRETATION NEGATIVE (NEGATIVE); TROPONIN I 0.835 ng/mL (0.000-0.034)
[2017-03-10 06:32] LABS: INR 1.11 (0.83-1.16); PROTIME(PATIENT) 14.5 SEC (12.0-15.0)
[2017-03-10 07:55] VITALS: RESP 14
--- NOTE | 2017-03-10 08:30 | CPEKG ---
Heart Rate: 90 RR Interval: 667 P-R Interval: 141 QRSD Interval: 76 QT Interval: 352 QTC Interval: 431 P [place]: 43 QRS [place]: 17 T Wave [place]: -46 EKG Severity - NORMAL ECG - EKG Impression: SINUS RHYTHM EKG Impression: DIFFUSE BORDERLINE T ABNL EKG Impression: COMPARED WITH 03/09/2017 AT 5:17 PM NO SIG CHANGE Electronically Signed By: Yoselin Bishop 10-Mar-2017 17:09:39
[2017-03-10] MEDS ORDERED: ASPIRIN 81 MG CHEWABLE TAB PO SCH (09:00)
--- NOTE | 2017-03-10 11:23 | ASMTCASEMG ---
Living Arrangements What is your living Answers: With Spouse arrangement? Who do you live with? Type Of Residence What kind of residence do Answers: House you live in? Discharge Plan Comments Coordination Status Comments Notes: Pt is a 22 y/o female admitted for s/p svt ablation. Pt will most likely d/c independent when medically stable. No therapies ordered at this time. CM spoke w/ JACQUIE Nails regarding d/c POC. CM available for changes. Plan: Independent Date Signed: 03/10/2017 11:23 AM Electronically Signed By:FELY Woodard
[2017-03-10 11:26] VITALS: BP 102/80; PULSE 88; TEMP 99; O2SAT 93
--- NOTE | 2017-03-10 13:00 | ECHO ---
[email or web address] [address] [address] Main: [phone] Fax: Transthoracic Echocardiogram Name: PRAVIN VICK MR#: [id number] Study Date: 03/10/2017 Study Time: 09:57 AM Date of : 1995 Age: 22 year(s) Height: ( ) Weight: ( ) BSA: Gender: Female Examination: Echo Indication: F/U Post EP study Image Quality: Adequate Contrast: Requested by: Armin Marquez BP: 112 mmHg/73 mmHg Heart Rate: Rhythm: Normal sinus rhythm Indication: F/U Post EP study Procedure Staff Public Policy Manager: Miroslava Rios Reading Physician: Armin Marquez Requesting Provider: Conclusions: Low normal left ventricular systolic function. The ejection fraction is visually estimated to be 50 %. Normal diastolic LV function. Mild mitral valve regurgitation is present. Mild tricuspid regurgitation is present. Measurements: Chambers Valvular Assessment AV/MV Valvular Assessment TV/PV Normal Normal Normal Name Value Range Name Value Range Name Value Range Ao Sushila (MM): 2.5 cm (2.2 cm-3.7 AV Vmax: 1.52 m/s (1 m/s-1.7 TR Vmax: 2.67 mm/s ( - ) cm) m/s) TR PGmax: 29 mmHg ( - ) IVSd (2D): 0.9 cm (0.6 cm-1.1 AV maxP mmHg ( - ) syst. PAP: 34 mmHg ( - ) cm) LVOT Vmax: 0.96 m/s (0.7 m/s-1.1 PV Vmax: 0.98 m/s (0.6 m/s-0.9 LVDd (2D): 5.3 cm (3.9 cm-5.3 m/s) m/s) cm) MV E Vmax: 0.95 m/s ( - ) PV PGmax: 4 mmHg ( - ) LVDs (2D): 4.0 cm (2.1 cm-4 MV A Vmax: 0.79 m/s ( - ) cm) MV E/A: 1.20 ( - ) LVPWd (2D): 0.7 cm ( - ) LVEF (BP): 46 % (>=55 %) Visual EF: 50 % RVDd(2D): 2.9 cm (1.9 cm-3.8 cmmm) Continued Measurements: Chambers Valvular Assessment AV/MV Valvular Assessment TV/PV Name Value Name Value Name Value LADs Lon.8 cm MV E/E' Septal: 14.60 CVP (est.): 5 mmHg LA Area: 11.2 cm2 MV E/E' Lateral: 11.60 Patient: PRAVIN VICK Study Date: 03/10/2017 Page 1 of 2 09:57 AM LA Volume: 29 ml RA Area: 9.6 cm2 Additional Vessels Name Value Ao Ascendin.4 cm Findings: Left Ventricle: Mildly dilated left ventricle. No LV hypertrophy. Low normal left ventricular systolic function. The ejection fraction is visually estimated to be 50 %. No regional wall motion abnormality. Normal diastolic LV function. Right Ventricle: Normal size right ventricle. Normal RV function. Left Atrium: The left atrium is normal in size. Right Atrium: The right atrium is normal in size. Mitral Valve: The mitral valve is normal in appearance. Mild mitral valve regurgitation is present. No mitral stenosis is present. Aortic Valve: The aortic valve is tri-leaflet. There is no aortic valve regurgitation. No aortic valve stenosis is present. Tricuspid Valve: The tricuspid valve appears normal. Mild tricuspid regurgitation is present. Right ventricular systolic pressure measures 34mmHg. Pulmonic Valve: The pulmonic valve is normal in appearance and function. There is no pulmonic regurgitation seen. Aorta: The aorta is normal. Normal size aortic root measuring 2.5 cm. Normal size ascending aorta measuring 2.4 cm. IVC: The IVC is normal sized. No foreign body in inferior vena cava. Pericardium: No pericardial effusion. (No Signature Object) Patient: PRAVIN VICK Study Date: 03/10/2017 Page 2 of 2 09:57 AM [id number]
--- NOTE | 2017-03-10 15:07 | ASDISCHSUM ---
Discharge Information Plan Status:Home with No Needs Medically Cleared to Leave:03/09/2017 Discharge Date:03/10/2017 01:30 PM CM D/C Disposition: ADT D/C Disposition:Home, Routine, Self-Care Projected Discharge Date:03/10/2017 12:00 AM Transportation at D/C: Discharge Delay Reason: Follow-Up Date:03/10/2017 12:00 AM Discharge Slot: Final Diagnosis: Placement Information Patient Contact Information Contact Name:JUAN Relationship: Address:[address] City:[place] Alternate Phone: [facility]/Zip Code:[place] [address] Email: Financial Information Financial Class: Primary Plan Desc:[employer] Primary Plan Number:[id number] Secondary Plan Desc: Secondary Plan Number: Assessment Information [facility] Initial CM Assessment Living Arrangements What is your living Answers: With Spouse arrangement? Who do you live with? Type Of Residence What kind of residence do Answers: House you live in? Discharge Plan Comments Coordination Status Comments Notes: Pt is a 22 y/o female admitted for s/p svt ablation. Pt will most likely d/c independent when medically stable. No therapies ordered at this time. CM spoke w/ JACQUIE Nails regarding d/c POC. CM available for changes. Plan: Independent Date Signed: 03/10/2017 11:23 AM Electronically Signed By:FELY Woodard Intervention Information
--- NOTE | 2017-03-10 20:21 | GDS ---
[f rep st] DISCHARGE SUMMARY DISCHARGE DIAGNOSES: 1. Supraventricular tachycardia. 2. Status post ablation of atrioventricular reentry tachycardia. BRIEF HISTORY: This is a 22-year-old woman who recently delivered a baby 2 months ago. She does have a history of SVT and had prior failed ablation at [facility] in 2006 with occasional recurrences of SVT since then. A few days after delivery of her baby, she presented to the to the ER in [place] with a tachycardia. EKG demonstrated a wide-complex tachycardia at 245 beats per minute. This did convert to sinus rhythm with adenosine. She was in pulmonary edema and was started on diuretics, metoprolol, lisinopril, and spironolactone due to ejection fraction of 45%. HOSPITAL COURSE: Dr. Marquez performed EP study and induced orthodromic AV reentry tachycardia. He ablated 3 separate AV accessory pathways: 1. The coronary sinus ostium near the ostium, of the middle cardiac vein. 2. Proximal coronary sinus floor, just proximal to the ostium of the posterolateral branch of the coronary sinus. 3. Lateral to the accessory pathway #2. She has done well overnight. Telemetry demonstrates sinus rhythm, without any SVT. She reports mild groin site tenderness. Sutures were removed from both groin sites without difficulty. There is no bleeding and no hematoma. There is slight ecchymosis. She denies any chest pain, pressure, tightness, or shortness of breath. Her O2 saturation was low at 90% this morning; however, she has not been up out of bed at all. TESTING DONE: Echocardiogram demonstrates ejection fraction of 50% without wall motion abnormalities. There is mild TR. Estimated RVSP is 34 mmHg, and there is no pericardial effusion. 12-lead EKG demonstrates sinus rhythm with nonspecific ST-T wave flattening. LAB WORK: WBC is 8.65, hemoglobin 11.9, hematocrit 35.7, platelets 217. Sodium is 143, potassium 3.8, chloride 110, bicarb 21, BUN 8, creatinine 0.8, glucose 89, CK 228, CK-MB fraction 2.5, CK-MB percent 1.1, troponin is 0.835. Magnesium is 1.9 this morning. PHYSICAL EXAM: VITAL SIGNS: Blood pressure is 112/73, heart rate 95, respirations 14, temperature 37.3. O2 saturation 90%; however, later in the morning, 93%. GENERAL: She is alert and oriented, lying in bed, in no acute distress. CARDIAC: Regular rate and rhythm without murmur, rub, or gallop. LUNGS: Clear to auscultation. ABDOMEN: Soft, and nontender. Groin sites are without bleeding or hematoma. EXTREMITIES: Warm. No discoloration. No lower extremity edema. Bilateral +1 pedal pulses. DISCHARGE INSTRUCTIONS: Postablation activity restrictions were reviewed verbally with patient, and she was given written instructions at discharge. DISCHARGE MEDICATIONS: Please see discharge medication reconciliation. Of note , she will take 81 mg of aspirin daily for 6 weeks post ablation. FOLLOWUP: She has a followup scheduled 04/14/2017 at 11:[address] Marquez. /[id number]/MODL MTDD
== END 2017-03-10 13:30 | disposition home or self-care (01) ==
LOC: FCATH 07:01 → F2W 16:44
PROVIDERS: ADMIT Internal Medicine Cardiovascular Disease; ATTEND Internal Medicine Cardiovascular Disease
DX: I47.1 Supraventricular tachycardia (principal)
CPT/HCPCS: 93005; 93306; 93613; 93621; 93623; 93653; 93662; C1730; C1732; C1893; C1731; C1733; C1759; C1766; J0461; J1100; J1644; J2250; J2370; J2704; J2720; J3010; Q9967